=== PATIENT | female | born 1955 | race Caucasian/White ===

== ENCOUNTER 2020-03-14 14:42 | Emergency (ER) | payer BC ==
[~2020-03-14] VITALS: Ht 160 cm; Wt 90.7 kg
[2020-03-14 16:50] VITALS: BP 158/87
== END 2020-03-14 16:51 | disposition home or self-care (01) ==
LOC: ER 14:42
DX: H53.2 Diplopia (principal); Z88.1 Allergy status to other antibiotic agents

== ENCOUNTER → 2020-04-10 | Outpatient (CLI) | payer BC | LOC: MRI 09:19 | PROVIDERS: ATTEND Internal Medicine | DX: H53.2 Diplopia (principal) ==